=== PATIENT | male | born 1955 | race Caucasian/White ===

== ENCOUNTER 2021-02-15 09:18 | Inpatient (IN) | payer MEDICAID, OTHER ==
[~2021-02-15] VITALS: Ht 170.2 cm; Wt 68.0 kg
[2021-02-15] MEDS ORDERED: ACETAMINOPHEN 325MG TABLET PO STA (10:10)
[2021-02-15] MEDS ORDERED: CEFTRIAXONE 1 G PREMIX 50 ML IV ONE (10:15)
[2021-02-15 10:21] LABS: HEMATOCRIT. 44.9 % (42.0-52.0); HEMOGLOBIN. 14.9 g/dL (14.0-18.0); MEAN CORPUSCULAR HEMOGLOBIN 29.8 pg (28.0-32.0); MEAN CORPUSCULAR VOLUME 89.5 fL (80.0-94.0); MEAN PLATELET VOLUME 9.3 fl (7.4-10.4); PLATELET 175 x1000/uL (130-400); RED BLOOD CELL COUNT 5.02 mill/uL (4.7-6.1)
[2021-02-15 10:26] LABS: CHLORIDE 109 mEq/L (98-107)
[2021-02-15 11:00] LABS: CLARITY URINE TURBID (CLEAR); KETONES URINE 1+ (NEGATIVE); LEUKOCYTE ESTERASE URINE 2+ (NEGATIVE); NITRITE URINE POSITIVE (NEGATIVE); OCCULT BLOOD URINE 3+ (NEGATIVE); PH URINE 5.5 (4.5-8.0); PROTEIN URINE 2+ (NEGATIVE); SPECIFIC GRAVITY URINE 1.023 (1.005-1.030)
[2021-02-15 11:01] LABS: COLOR URINE BLOODY (YELLOW)
[2021-02-15 12:06] LABS: ATYPICAL LYMPHOCYTES 1; PLATELET ESTIMATE NORMAL
[2021-02-15] MEDS ORDERED: MEROPENEM 1,000 MG in SODIUM CHLORIDE 0.9% 100 ML IV NR (15:30)
[2021-02-15] MEDS ORDERED: CEPH500C2 MT (16:37)
[2021-02-15 16:40] VITALS: BP 116/67
[2021-02-15] MEDS ORDERED: ONDANSETRON HCL 4MG/2ML INJ IV PRN (16:45)
[2021-02-15] MEDS ORDERED: ACETAMINOPHEN 325MG TABLET PO PRN (16:45)
[2021-02-15] MEDS ORDERED: SODIUM CHLORIDE 0.9% 1,000 ML IV SCH (16:45)
[2021-02-15] MEDS ORDERED: DIPHENHYDRAMINE 50MG/ML VIAL IV PRN (16:45)
[2021-02-15] MEDS ORDERED: IPRATROPIUM/ALBUTEROL 0.5-3(2.5)MG/3ML NEB HHN PRN (16:45)
[2021-02-15] MEDS ORDERED: CLONIDINE 0.1MG TABLET PO PRN (16:45)
[2021-02-15] MEDS ORDERED: MORPHINE SULFATE 2 MG/ML CPJ (NOT FOR IM USE) IV PRN (16:45)
[2021-02-15] MEDS ORDERED: NALOXONE HCL 0.4MG/ML VIAL IV PRN (17:00)
[2021-02-16] MEDS ORDERED: CEFTRIAXONE 1 G PREMIX 50 ML IV SCH (10:00)
== END 2021-02-15 17:07 | disposition left against medical advice (07) | DRG 720 ==
LOC: ER 09:43 → MICUSO 12:54 → EDBEDREQ 13:22
PROVIDERS: ADMIT Internal Medicine; ATTEND Internal Medicine
DX: A41.9 Sepsis, unspecified organism (principal); N20.1 Calculus of ureter; R03.0 Elevated blood-pressure reading, without diagnosis of hypertension; R65.20 Severe sepsis without septic shock; R00.0 Tachycardia, unspecified; R31.9 Hematuria, unspecified; N39.0 Urinary tract infection, site not specified; Z20.822 Contact with and (suspected) exposure to COVID-19; F17.210 Nicotine dependence, cigarettes, uncomplicated; Z79.899 Other long term (current) drug therapy
CPT/HCPCS: 36415; 71045; 74176; 80048; 80076; 81003; 83605; 84145; 84484; 85025; 87077; 87426; 93005; 99291; J0696; J2185; J7050

== ENCOUNTER 2021-02-16 11:08 | Emergency (ER) | payer MEDICAID ==
[~2021-02-16] VITALS: Ht 170.2 cm; Wt 73.2 kg
[~2021-02-16 11:08] MED LIST: CEPH500C2 MT
[2021-02-16] MEDS ORDERED: KETOROLAC 30MG/ML VIAL IV STA (15:21)
[2021-02-16] MEDS ORDERED: ONDANSETRON HCL 4MG/2ML INJ IV STA (15:21)
[2021-02-16] MEDS ORDERED: SODIUM CHLORIDE 0.9% 1,000 ML IV ONE (15:30)
[2021-02-16] MEDS ORDERED: CEFTRIAXONE 1 G PREMIX 50 ML IV ONE (15:30)
[2021-02-16] MEDS ORDERED: SODIUM CHLORIDE 0.9% 1000ML BAG (SEPSIS BOLUS) IV ONE (15:30)
[2021-02-16 16:01] LABS: BASOPHILS % 0.3 % (0.0-2.0); EOSINOPHILS % 1.6 % (0.0-5.0); HEMATOCRIT. 42.4 % (42.0-52.0); HEMOGLOBIN. 14.2 g/dL (14.0-18.0); LYMPHOCYTES % 11.9 % (20.0-50.0); MEAN CORPUSCULAR HEMOGLOBIN 29.4 pg (28.0-32.0); MEAN CORPUSCULAR VOLUME 88.1 fL (80.0-94.0); MEAN PLATELET VOLUME 9.6 fl (7.4-10.4); MONOCYTES % 7.9 % (2.0-8.0); NEUTROPHILS % 78.3 % (40.0-76.0); PLATELET 175 x1000/uL (130-400); RED BLOOD CELL COUNT 4.81 mill/uL (4.7-6.1); RED CELL DISTRIBUTION WIDTH 14.8 % (11.6-14.6)
[2021-02-16 16:08] LABS: CHLORIDE 107 mEq/L (98-107)
[2021-02-16 16:10] LABS: PROTHROMBIN TIME 10.9 sec (9.6-11.0)
[2021-02-16 17:27] LABS: CLARITY URINE CLEAR (CLEAR); COLOR URINE YELLOW (YELLOW); KETONES URINE NEGATIVE (NEGATIVE); LEUKOCYTE ESTERASE URINE 2+ (NEGATIVE); NITRITE URINE NEGATIVE (NEGATIVE); OCCULT BLOOD URINE 2+ (NEGATIVE); PH URINE 5.5 (4.5-8.0); PROTEIN URINE TRACE (NEGATIVE); UROBILINOGEN URINE 0.2 E.U./dL (0.2-1.0)
[2021-02-16 17:59] VITALS: BP 123/65
== END 2021-02-16 18:03 | disposition left against medical advice (07) ==
LOC: ER 11:08 → EDBEDREQSVC 17:31 → EDBEDREQTM 17:31 → EDBEDREQ 17:31 → CANBEDREQ 18:03 → ER 18:03
DX: A41.9 Sepsis, unspecified organism (principal); N20.0 Calculus of kidney; N39.0 Urinary tract infection, site not specified; F12.10 Cannabis abuse, uncomplicated
CPT/HCPCS: 36415; 74177; 80053; 81003; 83605; 85025; 85610; 87040; 87086; 96365; 96375; 99285; J0696; J1885; J2405; J7030

== ENCOUNTER 2021-09-22 13:10 | Emergency (ER) | payer SELFPAY ==
[~2021-09-22] VITALS: Ht 180.3 cm; Wt 75.0 kg
[2021-09-22] MEDS ORDERED: MECLIZINE 25MG TABLET PO ONE (13:30)
[2021-09-22] MEDS ORDERED: SODIUM CHLORIDE 0.9% 1,000 ML IV ONE (13:30)
[2021-09-22] MEDS ORDERED: IBUPROFEN 400MG TABLET PO ONE (13:30)
[2021-09-22 13:52] LABS: EOSINOPHILS % 4.4 % (0.0-5.0); HEMATOCRIT. 44.7 % (42.0-52.0); HEMOGLOBIN. 14.8 g/dL (14.0-18.0); MEAN CORPUSCULAR HEMOGLOBIN 29.4 pg (28.0-32.0); MEAN CORPUSCULAR VOLUME 88.7 fL (80.0-94.0); MEAN PLATELET VOLUME 9.5 fl (7.4-10.4); MONOCYTES % 9.9 % (2.0-8.0); NEUTROPHILS % 46.7 % (40.0-76.0); PLATELET 188 x1000/uL (130-400); RED BLOOD CELL COUNT 5.04 mill/uL (4.7-6.1); RED CELL DISTRIBUTION WIDTH 15.3 % (11.6-14.6)
[2021-09-22 13:54] LABS: CHLORIDE 111 mEq/L (98-107)
[2021-09-22] MEDS ORDERED: MECL-159 MT (15:16)
[2021-09-22 15:49] VITALS: BP 150/85
== END 2021-09-22 15:48 | disposition home or self-care (01) ==
LOC: ER 13:10
DX: R42 Dizziness and giddiness (principal); Z87.442 Personal history of urinary calculi
CPT/HCPCS: 36415; 71045; 80053; 83880; 84484; 85025; 93005; 96360; 99285; J7030; J8597